=== PATIENT | male | born 1995 | race African-American/Black ===

== ENCOUNTER 2019-11-12 17:29 | Emergency (ER) | payer OTHER ==
--- NOTE | 2019-11-12 18:00 | ER ---
Nurse's Notes [facility] Name: Radu Casas Age: 24 yrs Sex: Male : 1995 Arrival Date: 11/12/2019 Time: 17:31 Bed 16 Private MD: Diagnosis: Diarrhea, unspecified;Unspecified abdominal pain Presentation: 11/11 17:44 Chief complaint: Patient states: pain to umbilical area x 3 weeks ago. Pt reports being aa5 seen at [facility] with normal CT abdomen and had colonoscopy scheduled but was cancelled due to Coronavirus pandemic. Pt denies nausea/vomiting. Reports diarrhea after taking laxative. Coronavirus screen: Patient denies fever greater than 100.4F, cough, shortness of breath, or difficulty breathing. Ebola Screen: Patient negative for fever greater than or equal to 101.5 degrees Fahrenheit, and additional compatible Ebola Virus Disease symptoms. Initial Sepsis Screen: Does the patient meet any 2 criteria? No. Patient's initial sepsis screen is negative. Does the patient have a suspected source of infection? No. Patient's initial sepsis screen is negative. Risk Assessment: Do you want to hurt yourself or someone else? Patient reports no desire to harm self or others. 17:44 Acuity: KRAIG 3 aa5 17:44 Method Of Arrival: Ambulatory aa5 Historical: - Allergies: 17:47 Amoxicillin; aa5 - PMHx: 17:47 None; aa5 - PSHx: 17:47 Right shoulder; aa5 - Immunization history:: Flu vaccine is not up to date. - Social history:: Smoking status: Patient reports the use of cigarette tobacco products, smokes one-half pack cigarettes per day. - Family history:: not pertinent. - Hospitalizations: : No recent hospitalization is reported. Screenin:12 Abuse screen: Denies threats or abuse. Denies injuries from another. Nutritional ph screening: No deficits noted. Tuberculosis screening: No symptoms or risk factors identified. Fall Risk None identified. Assessment: 18:10 General: Appears in no apparent distress. comfortable, Behavior is calm, cooperative, ph appropriate for age, Denies fever. Pain: Complains of pain in umbilical area. Neuro: Level of Consciousness is awake, alert, obeys commands, Oriented to person, place, time, situation. Cardiovascular: Capillary refill < 3 seconds in bilateral fingers Patient's skin is warm and dry. Respiratory: Airway is patent Respiratory effort is even, unlabored. GI: Abdomen is round non-distended, Bowel sounds present X 4 quads. Abd is soft and non tender X 4 quads. Reports pain in umbilical region Patient currently denies diarrhea, nausea, vomiting. Derm: Skin is intact, is healthy with good turgor, Skin is pink, warm \T\ dry. Vital Signs: 17:44 BP 147 / 85; Pulse 81; Resp 18 S; Temp 98.3(O); Pulse Ox 98% on R/A; Weight 107.95 kg aa5 (R); Height 6 ft. 0 in. (182.88 cm) (R); Pain 9/10; 17:44 Body Mass Index 32.28 (107.95 kg, 182.88 cm) aa5 ED Course: 17:31 Patient arrived in ED. fj1 17:44 Arm band placed on Patient placed in an exam room, on a stretcher. aa5 17:46 Triage completed. aa5 17:50 Rafa Lundberg DO is Attending Physician. ms3 18:05 Charity Casas, RN is Primary Nurse. ph 18:16 Patient has correct armband on for positive identification. Bed in low position. Call ph light in reach. Side rails up X 1. 18:16 No provider procedures requiring assistance completed. Patient did not have IV access ph during this emergency room visit. Administered Medications: No medications were administered Outcome: 17:59 Discharge ordered by . ms3 18:16 Discharged to home ambulatory. ph 18:16 Condition: good 18:16 Discharge instructions given to patient, Instructed on discharge instructions, follow up and referral plans. medication usage, Demonstrated understanding of instructions, follow-up care, medications, Prescriptions given X 1. 18:17 Patient left the ED. ph Signatures: Jess Yang RN RN [facility] Charity Casas RN RN ph James, Frank [facility] Rafa Lundberg DO DO ms3
--- NOTE | 2019-11-12 18:18 | EDPHYS ---
Physician Documentation [facility] Name: Radu Casas Age: 24 yrs Sex: Male : 1995 Arrival Date: 11/12/2019 Time: 17:31 Bed 16 Private MD: ED Physician Rafa Lundberg HPI: 11/11 18:03 This 24 yrs old Black Male presents to ER via Ambulatory with complaints of Abdominal ms3 Pain. 18:05 This 24 yrs old Black Male presents to ER via Ambulatory with complaints of Abdominal ms3 Pain. 18:05 The patient presents with abdominal pain right lower quadrant. Onset: The ms3 symptoms/episode began/occurred 2 year(s) ago. The symptoms do not radiate. Associated signs and symptoms: Pertinent positives: diarrhea, Pertinent negatives: nausea and vomiting, anorexia, blood in stools, testicular pain, vomiting, vomiting blood. The symptoms are described as crampy. Modifying factors: The symptoms are alleviated by nothing, the symptoms are aggravated by food. Severity of pain: in the emergency department the pain is unchanged. The patient has been recently seen by a physician: Pt states he was seen at [facility] 2 weeks ago for this pain. Pt states he had blood work and CT preformed at that time that were negative. Pt was instructed to follow up with GI where he was told he needed a colonoscopy.. Historical: - Allergies: 17:47 Amoxicillin; aa5 - PMHx: 17:47 None; aa5 - PSHx: 17:47 Right shoulder; aa5 - Immunization history:: Flu vaccine is not up to date. - Social history:: Smoking status: Patient reports the use of cigarette tobacco products, smokes one-half pack cigarettes per day. - Family history:: not pertinent. - Hospitalizations: : No recent hospitalization is reported. ROS: 18:05 Constitutional: Negative for fever, and chills. Eyes: Negative for injury, pain, ms3 redness, and discharge, Neck: Negative for injury, pain, and swelling, Cardiovascular: Negative for chest pain, and palpitations. Respiratory: Negative for shortness of breath, cough, wheezing, and pleuritic chest pain. 18:05 Abdomen/GI: Positive for abdominal pain, diarrhea. 18:05 All other systems are negative. Exam: 18:09 Constitutional: This is a well developed, well nourished patient who is awake, alert, ms3 and in no acute distress. Eyes: Pupils equal round and reactive to light, extra-ocular motions intact. Lids and lashes normal. Conjunctiva and sclera are non-icteric and not injected. Cornea within normal limits. Periorbital areas with no swelling, redness, or edema. Chest/axilla: Normal chest wall appearance and motion. Nontender with no deformity. Cardiovascular: Regular rate and rhythm with a normal S1 and S2. No gallops, murmurs, or rubs. Normal PMI, no JVD. No pulse deficits. Respiratory: Lungs have equal breath sounds bilaterally, clear to auscultation and percussion. No rales, rhonchi or wheezes noted. No increased work of breathing, no retractions or nasal flaring. Abdomen/GI: Soft, non-tender, with normal bowel sounds. No distension or tympany. No guarding or rebound. No evidence of tenderness throughout. Skin: Warm, dry with normal turgor. Normal color with no rashes, no lesions, and no evidence of cellulitis. MS/ Extremity: Pulses equal, no cyanosis. Neurovascular intact. Full, normal range of motion. Neuro: Awake and alert, GCS 15, oriented to person, place, time, and situation. Cranial nerves II-XII grossly intact. Motor strength 5/5 in all extremities. Sensory grossly intact. Cerebellar exam normal. Normal gait. Psych: Awake, alert, with orientation to person, place and time. Behavior, mood, and affect are within normal limits. Vital Signs: 17:44 BP 147 / 85; Pulse 81; Resp 18 S; Temp 98.3(O); Pulse Ox 98% on R/A; Weight 107.95 kg aa5 (R); Height 6 ft. 0 in. (182.88 cm) (R); Pain 9/10; 17:44 Body Mass Index 32.28 (107.95 kg, 182.88 cm) aa5 MDM: 17:51 Patient medically screened. ms3 18:10 Differential diagnosis: appendicitis, bowel obstruction, non-specific abd pain. Data ms3 reviewed: vital signs, nurses notes. 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 Administered Medications: No medications were administered Disposition: 19:02 Co-signature as Attending Physician, Rafa Lundberg DO. ms3 Disposition: 11/12/19 17:59 Discharged to Home. Impression: Diarrhea, unspecified, Unspecified abdominal pain. - Condition is Stable. - Discharge Instructions: Abdominal Pain, Adult, Diarrhea, Adult. - Prescriptions for Bentyl 10 mg Oral Capsule - take 1 capsule by ORAL route every 6 hours As needed; 20 capsule. - Medication Reconciliation Form, Thank You Letter, Antibiotic Education, Prescription Opioid Use form. - Follow up: Private Physician; When: 2 - 3 days; Reason: Re-evaluation by your physician. - Problem is chronic. Signatures: Jess Yang, RN RN aa5 Charity Casas RN RN ph Rafa Lundberg DO DO ms3 Corrections: (The following items were deleted from the chart) 18:08 18:03 The patient presents with abdominal pain right lower quadrant, ms3 ms3 18:08 18:03 Onset: The symptoms/episode began/occurred 2 year(s) ago, ms3 ms3 18:08 18:03 The patient presents to the emergency department with diarrhea, ms3 ms3 18:08 18:03 Onset: The symptoms/episode began/occurred 3 week(s) ago, ms3 ms3 18:08 18:03 Possible causes: unknown, ms3 ms3 18:08 18:03 The symptoms are aggravated by food , The symptoms are alleviated by nothing. ms3 ms3 18:08 18:03 The symptoms do not radiate. ms3 ms3 18:08 18:03 Associated signs and symptoms: Pertinent positives: abdominal pain, diarrhea, ms3 Pertinent negatives: anorexia, ms3 18:08 18:03 This 24 yrs old Black Male presents to ER via Ambulatory with complaints of ms3 Abdominal Pain. ms3 18:17 17:59 11/12/2019 17:59 Discharged to Home. Impression: Diarrhea, unspecified; ph Unspecified abdominal pain. Condition is Stable. Forms are Medication Reconciliation Form, Thank You Letter, Antibiotic Education, Prescription Opioid Use. Follow up: Private Physician; When: 2 - 3 days; Reason: Re-evaluation by your physician. Problem is chronic. ms3
[2019-11-12 18:27] VITALS: BP 147/85; TEMP 98.3; O2SAT 98
== END 2019-11-12 18:17 | disposition home or self-care (01) ==
LOC: ER 17:29
DX: R19.7 Diarrhea, unspecified (principal); F17.210 Nicotine dependence, cigarettes, uncomplicated; Z88.1 Allergy status to other antibiotic agents
CPT/HCPCS: 99282

== ENCOUNTER 2022-11-03 08:47 | Day surgery (SDC) | payer BC ==
[2022-11-03 09:31] LABS: Absolute Lymphocytes (CBC) 1.7 K/uL (0.7-4.9); Lymphocytes % 27.1 % (15.3-44.8); MCV 90.9 fL (80-100); MPV 7.4 fL (7.6-11.3); RBC Red Blood Cell Count 5.39 M/uL (4.33-5.43)
[2022-11-03] MEDS ORDERED: Ringers Lactate 1,000 ML IV ONE (09:35)
[2022-11-03 09:45] LABS: Albumin 4.1 g/dL (3.4-5.0); Bilirubin Total 0.5 mg/dL (0.2-1.0); Potassium 3.6 mEq/L (3.5-5.1); Protein, Total 7.9 g/dL (6.4-8.2)
[2022-11-03] MEDS ORDERED: propofoL 200 MG/20 ML VIAL IV ONE (11:14)
[2022-11-03] MEDS ORDERED: MIDAZOLAM HCL 2 MG/2 ML INJ ONE (11:14)
[2022-11-03] MEDS ORDERED: LIDOCAINE 1% MPF 5 ML VIAL ONE (11:15)
[2022-11-03] MEDS ORDERED: FENTANYL CITR 100 MCG/2 ML ONE (11:28)
[2022-11-03 12:49] VITALS: O2SAT 96
[2022-11-03 12:50] VITALS: BP 107/55; TEMP 98.3
--- NOTE | 2022-11-03 13:38 | EKG ---
Test Date: 2022-11-03 Test Time: 09:07:08 [employer] Manager: GAYATHRI MEASUREMENT RESULTS: Intervals: Rate: 64 WI: 118 QRSD: 94 QT: 378 QTc: 389 [place]: P: 59 WI: 118 QRS: 76 T: 59 INTERPRETIVE STATEMENTS: Normal sinus rhythm with sinus arrhythmia Nonspecific T wave abnormality Abnormal ECG No previous ECG available for comparison Electronically Signed On 11-03-22 13:37:58 CDT by Alphonse Rojas
== END 2022-11-03 12:07 | disposition home or self-care (01) ==
LOC: OR 08:47
PROVIDERS: ATTEND Surgery
PROC: 0DB78ZX Excision of Stomach, Pylorus, Via Natural or Artificial Opening Endoscopic, Diagnostic (ICD-10-PCS; principal; 2022-11-03 12:15)
DX: K29.30 Chronic superficial gastritis without bleeding (principal); K25.9 Gastric ulcer, unspecified as acute or chronic, without hemorrhage or perforation; K44.9 Diaphragmatic hernia without obstruction or gangrene; F17.200 Nicotine dependence, unspecified, uncomplicated; Z88.0 Allergy status to penicillin
CPT/HCPCS: 93005; 85025; 36415; 88312; 83605; 88305; 80053; 43239; J2704; J2001; J2250; J3010; J7120